=== PATIENT | female | born 1990 | race Caucasian/White ===

== ENCOUNTER 2022-05-08 14:25 | Emergency (ER) | payer BC, SELFPAY ==
[2022-05-08 15:00] VITALS: BP 125/61; PULSE 66; RESP 18; TEMP 36.8; O2SAT 98; BMI 29.9
--- NOTE | 2022-05-08 15:06 | XR_ITS ---
FINAL REPORT CLINICAL HISTORY: kicked dog crate FINDINGS: RIGHT FOOT: Three views of the right foot were obtained. There is a fracture of the proximal medial aspect of the 1st proximal phalanx with mild distraction. The fracture line extends into the 1st MTP joint. There is a small calcaneal spur. There is no soft tissue abnormality. IMPRESSION: First proximal phalanx fracture as above Reviewed, Interpreted and Dictated by Leandro Squires III, MD Transcribed by Janelle Christine Authenticated and [facility]
--- NOTE | 2022-05-08 15:36 | HMH.EDUTC ---
[facility] [place] Clinical Impression: Fracture of proximal phalanx of great toe Qualifiers: Encounter type: initial encounter Fracture type: closed Fracture alignment: nondisplaced Laterality: right Qualified Code(s): S92.414A - Nondisplaced fracture of proximal phalanx of right great toe, initial encounter for closed fracture Disposition: Home, Self-Care Condition on Discharge: Good Instructions: Toe Fracture, DI for Toe Fracture, How to Mack Tape Additional Instructions: *weight bearing as tolerated *RICE, Rest the extremity, Ice 15-20 minutes 3-4 times daily, Compress- wear the juan j wrap as discussed as much as possible to help reduce swelling and pain, Elevate the extremity when at rest *Juan J wrap/Post op shoe is for support and help control swelling, use it except in the shower. Be sure that is not to tight but not to loose either *Elevate when resting *Ibuprofen 600-800mg every 6-8 hours as needed for pain an inflammation. If need something more can take Tylenol in between doses of Ibuprofen to help Immediately follow up with your family doctor for new or worsening of symptoms, or no noticeable improvement over the next 3-[address] Follow up [address] Schilling [facility] or Podiatry if no improvement or any worsening of symptoms Follow up with your Family Doctor if needed Straight to ER if any life threatening symptoms Referrals: Elise Bocanegra MD [Primary Care Provider] - As needed Julio Schilling MD [Staff Physician] - Marlen Desouza DPM [Staff Physician] - Time of Disposition: 15:45 Medical Decision Making - John Inquiry Pt receiving controlled substance: No John was queried for this patient: No Vital Signs: 05/08/22 15:00 05/08/22 15:47 Temperature 98.3 F 98.3 F Temperature Source Oral Pulse Rate 66 Pulse Rate [Left Brachial] 66 Respiratory Rate 18 18 Blood Pressure 125/61 Blood Pressure [Left Arm] 125/61 Blood Pressure Mean [Left Arm] 82 Blood Pressure Source [Left Arm] Automatic Cuff Blood Pressure Position [Left Arm] Sitting 02 Sat by Pulse Oximetry 98 Oxygen Delivery Method Room Air - Radiology Data #1 Image(s): Foot/Toes (right) Image Reviewed: Yes I reviewed the patient's radiology image Fracture base of proximal phalanx big toe [facility] [place] HPI - General Stated complaint: AO 05/08 foot pain Time Seen by Provider: 05/08/22 15:36 Mode of Arrival: Ambulatory Source of Information: Patient Limitations: No Limitations Description of Symptoms (Recalled from Triage Doc. by RN): PATIENT C/O PAIN AND BRUISING TO RIGHT GREAT TOE AREA AFTER KICKING DOG CRATE THIS MORNING HEENT Symptoms (Recalled from RN notes): No Resp Symptoms (Recalled from RN notes): No Skin Symptoms (Recalled from RN notes): No MS Symptoms (Recalled from RN notes): Yes Functional Status (Recalled from RN notes): WNL - History of Present Illness Provider Complaint: Patient states that she was walking through her house this morning when she accidently kicked a dog crate States that she has been having swelling and bruising to her right great toe ever sice so she came in to get checked out - Related Data Allergies Allergy/AdvReac Type Severity Reaction Status Date / Time No Known Allergies Allergy Verified 05/08/22 15:19 - Worker's Comp Is this a Worker's Comp case?: No [facility] History - Hepatitis A Screen Attestation statement:: This patient has been screened for Hepatitis A risk factors. I have reviewed the patient's past medical history: Yes ROS Obtained: Yes All systems reviewed & no additional complaints, Yes Systems reviewed as appropriate & no additional complaints - Constitutional Constitutional: Reports system reviewed and no additional complaints, except as docu, Denies body ache, Denies chills - Cardiovascular Cardiovascular: Reports system reviewed and no additional complaints, except as docu - Respiratory Respiratory: Reports system reviewed and no additional complaints, except as do
[2022-05-08 15:47] VITALS: BP 125/61; PULSE 66; RESP 18; TEMP 36.8; O2SAT 98
== END 2022-05-08 16:00 | disposition home or self-care (01) ==
PROVIDERS: Emergency Provider Nurse Practitioner; PCP Family Medicine
DX: S92.414A Nondisplaced fracture of proximal phalanx of right great toe, initial encounter for closed fracture (principal); W22.8XXA Striking against or struck by other objects, initial encounter
CPT/HCPCS: 73630; 99213; G0463

== ENCOUNTER → 2023-02-15 13:39 | Outpatient (CLI) | payer BC, SELFPAY ==
--- NOTE | 2023-02-15 13:59 | US_ITS ---
FINAL REPORT TECHNIQUE: Sonographic images of the pelvis were obtained transvaginally. CLINICAL HISTORY: pelvic pain, and iud in place , check ovaries FINDINGS: The uterus is anteverted and anteflexed. It measures 7.8 x 4.5 x 3.7 cm. The endometrial stripe measures 3 mm. There is an IUD within the endometrial cavity. The myometrium is mildly heterogeneous which could represent small fibroids or adenomyosis. There is a small amount of fluid within the cervix which is otherwise unremarkable. The right ovary is not visualized and reportedly removed. The left ovary measures 4.2 x 3.9 x 3.7 cm. There is a hypoechoic 3.1 cm lesion within the left ovary with internal echoes which is most consistent with a hemorrhagic cyst, endometrioma less likely. Color imaging to the left ovary is within normal limits. There is no free fluid. IMPRESSION: 1. IUD within the endometrial cavity. 2. Mildly heterogeneous myometrium could represent small fibroids or adenomyosis. 3. Hypoechoic left ovarian lesion, favor hemorrhagic cyst, endometrioma less likely. Reviewed, Interpreted and Dictated by Eloisa Shepherd MD Transcribed by Janelle Christine Authenticated and . [facility]
== END ==
PROVIDERS: PCP Family Medicine; Visit Provider Obstetrics & Gynecology
DX: R10.2 Pelvic and perineal pain (principal); Z97.5 Presence of (intrauterine) contraceptive device
CPT/HCPCS: 76830

== ENCOUNTER 2024-06-04 22:12 | Emergency (ER) | payer BC, SELFPAY ==
[2024-06-04 22:13] VITALS: BP 149/91; PULSE 123; RESP 20; TEMP 37.2; O2SAT 100; BMI 32.4
--- NOTE | 2024-06-04 22:43 | ED_ITS ---
<Statement entered by Claire Marin MD - 06/04/24 22:57> I was consulted by the GAGE, and we discussed the complexity of the problems being addressed. I approved the treatment and management plan for this patient's care in the emergency department, thus performing a substantive portion of the medical decision making. Claire Marin MD, LUIS, FACEP Discharge Plan Disposition Patient Disposition: Home, Self-Care Condition: Good Prescriptions Prescriptions: New ondansetron HCl 4 mg tablet 4 mg PO Q8H PRN (Reason: nausea and vomiting) 4 Days Qty: 12 0RF No Action Mirena 21 mcg/24 hours (8 yrs) 52 mg intrauterine device intrauterine propranolol 10 mg tablet 10 mg PO ONCE PRN Referrals Follow up/Referrals: James Mandujano MD [Primary Care Provider] - See instructions Activity Restrictions/Add. Instructions Additional Instructions/Restrictions: You were evaluated in the emergency department today. Please follow-up closely with your primary care provider. Return to the emergency department for new or worsening symptoms. Clinical Impressions Clinical Impression: Tachycardia, Body aches Stand Alone Forms Stand Alone Forms: Work/School Release Instructions Patient Instructions: DI for Arthralgia, DI for Tachycardia Discharge ED Provider: Claire Marin HPI <YEVGENIY Brock - Last Filed: 06/04/24 22:50> General Chief Complaint: Upper Respiratory Infection Stated Complaint: body aches,headache Time Seen by Provider: 06/04/24 22:27 History of Present Illness HPI narrative: Patient presents for evaluation of rapid heart rate. Patient stated that she noticed that her heart rate was very fast her Apple Watch. She also reports constitutionally overall body wide aches but no focal symptoms including cough fever chills hemoptysis hematochezia melena nausea vomiting diarrhea. She took a home COVID test which was negative. She has no cough. Related Data Home Medications Medication Instructions Recorded Confirmed levonorgestrel 21 mcg/24 hr (up to intrauterine 01/02/23 01/02/23 8 years) 52 mg intrauterine device (Mirena) propranolol 10 mg tablet 10 mg PO ONCE PRN 01/02/23 01/02/23 Previous Rx's Medication Instructions Recorded ondansetron HCl 4 mg tablet 4 mg PO Q8H PRN nausea and 06/05/24 vomiting 4 days #12 tabs Allergies Allergy/AdvReac Type Severity Reaction Status Date / Time No Known Allergies Allergy Verified 01/02/23 15:07 PFSH <YEVGENIY Brock - Last Filed: 06/04/24 22:50> [facility] Disclaimer: The information contained in this section may have been updated after the patient was seen, as this information can be updated by other users. Medical History (Updated 06/05/24 @ 00:44 by Ellyn Bar DO) Endometriosis Surgical History (Updated 01/02/23 @ 15:28 by Magi Marin MD) History of salpingoophorectomy History of appendectomy Social History (Updated 01/02/23 @ 15:14 by Miriam Hyatt CMA) Smoking Status: Never smoker alcohol intake: current substance use type: denies use current occupational status: employed Travel in the last 8 weeks: None <YEVGENIY Brock - Last Filed: 06/04/24 22:50> ROS Obtained: Yes Systems reviewed as appropriate & no additional complaints except as documented Physical Exam <YEVGENIY Brock - Last Filed: 06/04/24 22:50> General General appearance: alert and in no apparent distress Head Head exam: atraumatic and normal inspection Eye Eye exam: Present normal appearance, PERRL and EOMI ENT ENT exam: Present normal exam, normal oropharynx and mucous membranes moist Neck Neck exam: Present normal inspection, full ROM and trachea midline; Absent lymphadenopathy Chest Chest inspection: Present normal inspection and symmetric chest wall rise Respiratory Respiratory exam: Present normal lung sounds bilaterally; Absent respiratory distress, wheezes or accessory muscle use Cardiovascular Cardiovascular exam: Present normal rhythm, tachycardia, normal heart sounds, +S1 and +S2 Neurological Exam Neurological exam: Present alert and oriented X3 HEART Score <YEVGENIY Brock Last Filed: 06/04/24 22:50> HEART Score HEART Score assessment performed?: No Critical Care <YEVGENIY Brock Last Filed: 06/04/24 22:50> Critical Care Time Critical Care Time: No Medical Decision Making <YEVGENIY Brock - Last Filed: 06/04/24 22:50> John Inquiry Pt receiving controlled substance: No Vital Signs Vital Signs: 06/04/24 22:13 06/05/24 00:27 Temperature 99 F Temperature Source Oral Pulse Rate 89 Pulse Rate [Right Brachial] 123 H Respiratory Rate 20 20 Blood Pressure 122/81 Blood Pressure [Right Arm] 149/91 H Blood Pressure Mean [Right Arm] 110 Blood Pressure Source Automatic Cuff Blood Pressure Source [Right Arm] Automatic Cuff Blood Pressure Position Sitting Blood Pressure Position [Right Arm] Sitting 02 Sat by Pulse Oximetry 100 96 Oxygen Delivery Method Room Air Room Air Lab Data Lab results reviewed: Yes I reviewed the patient's lab results. Labs: Lab Results 06/04/24 22:56: WBC 7.4, RBC 4.85, Hgb 14.1, Hct 41.3, MCV 85.3, MCH 29.1, MCHC 34.2, RDW 15.5, Plt Count 340, MPV 8.5, Neut % (Auto) 71.3, Lymph % (Auto) 22.2, [place] % (Auto) 4.4, Eos % (Auto) 1.4, Baso % (Auto) 0.7, Neut # (Auto) 5.3, Lymph # (Auto) 1.7, [place] # (Auto) 0.3, Eos # (Auto) 0.1, Baso # (Auto) 0.1, D-Dimer 0.35, Sodium 139, Potassium 3.9, Chloride 105, Carbon Dioxide 28, Anion Gap 9.9, BUN 10, Creatinine 1.00, Estimated Creat Clear 111, Estimated GFR 63, Est GFR ( Amer) 77, Glucose 124 H, Lactate 0.8, Calcium 9.7, Magnesium 2.1, Total Bilirubin 0.6, AST 32, ALT 32, Alkaline Phosphatase 72, Total Creatine Kinase 47, Total Protein 8.2, Albumin 4.7, Globulin 3.5 H, Albumin/Globulin Ratio 1.3, Procalcitonin < 0.030, TSH 2.63, Free T4 Index 2.0 L, Thyroxine (T4) 6.8, T3 Uptake 29, Serum HCG, Qual Negative 06/04/24 22:56 06/04/24 22:56 Response Orders (Tests/Meds): ED MEDICATIONS Discontinued Medications Generic Name Dose Route Start Last Admin Trade Name Freq PRN Reason Stop Dose Admin Acetaminophen 1,000 mg 06/04/24 22:44 06/04/24 23:00 Acetaminophen 1,000mg/100ml Vial IV 06/04/24 22:45 1,000 mg ONCE ONE Administration Lactated Ringer's 1,000 mls @ 999 mls/hr 06/04/24 22:44 06/04/24 23:00 Lactated Ringer's 1000 Ml Bag IV 06/04/24 23:44 999 mls/hr .Q1H1M ONE Administration Ketorolac Tromethamine 15 mg 06/04/24 22:44 06/04/24 23:01 Ketorolac 30mg/Ml Vial IV 06/04/24 22:45 15 mg ONCE ONE Administration Metoclopramide HCl 5 mg 06/05/24 00:04 06/05/24 00:14 Metoclopramide Hcl 10mg/2ml Vial IVP 06/05/24 00:05 5 mg ONCE ONE Administration ORDERS Category Date Time Status Chest XR -- portable [XR chest portable] Stat Exams 06/04/24 22:44 Completed CBC w/Auto Diff [Complete Blood Count Auto Diff] Stat Lab 06/04/24 22:56 Completed CK [Creatine Kinase] Stat Lab 06/04/24 22:56 Completed CMP [Comprehensive Metabolic Panel] Stat Lab 06/04/24 22:56 Completed D-Dimer Stat Lab 06/04/24 22:56 Completed HCG Qualitative, Serum Stat Lab 06/04/24 22:56 Completed Lactic Acid Stat Lab 06/04/24 22:56 Completed Magnesium Stat Lab 06/04/24 22:56 Completed Procalcitonin Stat Lab 06/04/24 22:56 Completed Rapid PCR Covid and Flu A/B Stat Lab 06/04/24 00:25 Received Thyroid Panel Stat Lab 06/04/24 22:56 Completed MDM Narrative Medical Decision Narrative: In summary patient is a 34-year-old female who presents to the emergency department for evaluation of rapid heart rate. Patient is normotensive with a blood pressure 149/91 but heart rate of 123 upon arrival, and a temperature of 99. Physical exam is remarkable for sinus tachycardia via palpation and auscultation but clear breath sounds and no other focal findings.. Differential diagnosis includes an infectious tachycardia versus arrhythmia versus electrolyte normality etc. Initial workup will be conducted with hematologic labs plain film chest x-ray twelve-lead EKG. Initial interventions include crystalloid bolus Toradol Tylenol. Initial workup started and pending at the time of handoff to Dr. Bar at 2300 hrs. <Ellyn Bar, DO - Last Filed: 06/05/24 00:49> Vital Signs Vital Signs: 06/04/24 22:13 06/05/24 00:27 Temperature 99 F Temperature Source Oral Pulse Rate 89 Pulse Rate [Right Brachial] 123 H Respiratory Rate 20 20 Blood Pressure 122/81 Blood Pressure [Right Arm] 149/91 H Blood Pressure Mean [Right Arm] 110 Blood Pressure Source Automatic Cuff Blood Pressure Source [Right Arm] Automatic Cuff Blood Pressure Position Sitting Blood Pressure Position [Right Arm] Sitting 02 Sat by Pulse Oximetry 100 96 Oxygen Delivery Method Room Air Room Air Lab Data Labs: Lab Results 06/04/24 22:56: WBC 7.4, RBC 4.85, Hgb 14.1, Hct 41.3, MCV 85.3, MCH 29.1, MCHC 34.2, RDW 15.5, Plt Count 340, MPV 8.5, Neut % (Auto) 71.3, Lymph % (Auto) 22.2, [place] % (Auto) 4.4, Eos % (Auto) 1.4, Baso % (Auto) 0.7, Neut # (Auto) 5.3, Lymph # (Auto) 1.7, [place] # (Auto) 0.3, Eos # (Auto) 0.1, Baso # (Auto) 0.1, D-Dimer 0.35, Sodium 139, Potassium 3.9, Chloride 105, Carbon Dioxide 28, Anion Gap 9.9, BUN 10, Creatinine 1.00, Estimated Creat Clear 111, Estimated GFR 63, Est GFR ( Amer) 77, Glucose 124 H, Lactate 0.8, Calcium 9.7, Magnesium 2.1, Total Bilirubin 0.6, AST 32, ALT 32, Alkaline Phosphatase 72, Total Creatine Kinase 47, Total Protein 8.2, Albumin 4.7, Globulin 3.5 H, Albumin/Globulin Ratio 1.3, Procalcitonin < 0.030, TSH 2.63, Free T4 Index 2.0 L, Thyroxine (T4) 6.8, T3 Uptake 29, Serum HCG, Qual Negative Response Orders (Tests/Meds): ED MEDICATIONS Discontinued Medications Generic Name Dose Route Start Last Admin Trade Name Freq PRN Reason Stop Dose Admin Acetaminophen 1,000 mg 06/04/24 22:44 06/04/24 23:00 Acetaminophen 1,000mg/100ml Vial IV 06/04/24 22:45 1,000 mg ONCE ONE Administration Lactated Ringer's 1,000 mls @ 999 mls/hr 06/04/24 22:44 06/04/24 23:00 Lactated Ringer's 1000 Ml Bag IV 06/04/24 23:44 999 mls/hr .Q1H1M ONE Administration Ketorolac Tromethamine 15 mg 06/04/24 22:44 06/04/24 23:01 Ketorolac 30mg/Ml Vial IV 06/04/24 22:45 15 mg ONCE ONE Administration Metoclopramide HCl 5 mg 06/05/24 00:04 06/05/24 00:14 Metoclopramide Hcl 10mg/2ml Vial IVP 06/05/24 00:05 5 mg ONCE ONE Administration ORDERS Category Date Time Status Chest XR -- portable [XR chest portable] Stat Exams 06/04/24 22:44 Completed CBC w/Auto Diff [Complete Blood Count Auto Diff] Stat Lab 06/04/24 22:56 Completed CK [Creatine Kinase] Stat Lab 06/04/24 22:56 Completed CMP [Comprehensive Metabolic Panel] Stat Lab 06/04/24 22:56 Completed D-Dimer Stat Lab 06/04/24 22:56 Completed HCG Qualitative, Serum Stat Lab 06/04/24 22:56 Completed Lactic Acid Stat Lab 06/04/24 22:56 Completed Magnesium Stat Lab 06/04/24 22:56 Completed Procalcitonin Stat Lab 06/04/24 22:56 Completed Rapid PCR Covid and Flu A/B Stat Lab 06/04/24 00:25 Received Thyroid Panel Stat Lab 06/04/24 22:56 Completed MDM Narrative Medical Decision Narrative: In summary patient is a 34-year-old female who presents to the emergency department for evaluation of rapid heart rate. Patient is normotensive with a blood pressure 149/91 but heart rate of 123 upon arrival, and a temperature of 99. Physical exam is remarkable for sinus tachycardia via palpation and auscultation but clear breath sounds and no other focal findings.. Differential diagnosis includes an infectious tachycardia versus arrhythmia versus electrolyte normality etc. Initial workup will be conducted with hematologic labs plain film chest x-ray twelve-lead EKG. Initial interventions include crystalloid bolus Toradol Tylenol. Initial workup started and pending at the time of handoff to Dr. Bar at 2300 hrs. Bar, DO: On my assessment of the patient, she is resting company with normal vital signs on cardiac telemetry. Tachycardia improved with IV fluid resuscitation. Labs do not demonstrate any acutely concerning abnormalities. CBC, CMP reassuring. Thyroid studies reassuring. D-dimer and CK negative. EKG obtained demonstrates normal sinus rhythm with a ventricular rate of 83 bpm. This was interpreted by myself at 0021. No acute ST changes concerning for ischemia. Normal axis and intervals. Patient said she had mild headache and nausea, so I did give her IV Reglan in addition to the medications administered above. Afterward, she states she is feeling better. She does note she has been under a lot of stress lately. Ultimately given reassuring workup and exam, I do feel she is appropriate for discharge home with very strict return precautions and instructions for close follow-up. I gave her prescription for Zofran to have as needed for nausea and vomiting, as this could be the start of an acute gastrointestinal/viral illness. It also could be stress-induced/dehydration, as she notes poor oral intake. Strict return precautions were given and the patient was discharged after all questions were answered.
--- NOTE | 2024-06-04 22:44 | XR_ITS ---
PROCEDURE INFORMATION: Exam: XR Chest Exam date and time: 06/04/2024 11:31 PM Age: 34 years old Clinical indication: Other: Tachycardia TECHNIQUE: Imaging protocol: Radiologic exam of the chest. Views: 1 view. COMPARISON: No relevant prior studies available. FINDINGS: Lungs: No consolidation. Pleural spaces: No pleural effusion. No pneumothorax. Heart/Mediastinum: No cardiomegaly. Bones/joints: Unremarkable. IMPRESSION: No acute pulmonary findings.
[2024-06-04] MEDS: ACETAMINOPHEN 1,000MG/100ML VIAL 1000 MG IV (23:00)
[2024-06-04] MEDS: LACTATED RINGERS 1000ML 1,000 ML 999 ML IV (23:00)
[2024-06-04] MEDS: KETOROLAC 30MG/ML VIAL 15 MG IV (23:01)
[2024-06-04 23:08] LABS: Basophils # 0.1 K/mm3 (0-0.2); Basophils % 0.7 % (0.1-2.0); Eosinophils # 0.1 K/mm3 (0.0-0.4); Eosinophils % 1.4 % (0.1-12.0); Hematocrit 41.3 % (37.0-47.0); Hemoglobin 14.1 g/dL (12.2-16.2); Lymphocytes # 1.7 K/mm3 (0.7-4.5); Lymphocytes % 22.2 % (10-50); Mean Corpuscular HGB Conc 34.2 g/dL (31.8-35.4); Mean Corpuscular Hemoglobin 29.1 pg (27.0-31.2); Mean Corpuscular Volume 85.3 fl (81-99); Mean Platelet Volume 8.5 fl (7.4-10.4); Monocytes # 0.3 K/mm3 (0.1-1.0); Monocytes % 4.4 % (1.7-9.3); Neutrophils # 5.3 K/mm3 (1.8-7.8); Neutrophils % 71.3 % (37.0-80.0); Platelet Count 340 K/mm3 (142-424); Red Blood Count 4.85 M/mm3 (4.20-5.40); Red Cell Distribution Width 15.5 % (11.5-17.5); White Blood Count 7.4 K/mm3 (4.8-10.8)
[2024-06-04 23:10] LABS: Chloride 105 mmol/L (98-107); Potassium 3.9 mmoL/L (3.5-5.1); Sodium 139 mmol/L (136-145)
[2024-06-04 23:13] LABS: Alanine Aminotransferase 32 U/L (12-78); Albumin Level 4.7 g/dl (3.5-5.0); Albumin/Globulin Ratio 1.3 (1.1-1.8); Alkaline Phosphatase 72 U/L (38-126); Anion Gap 9.9 mEq/L (5-15); Aspartate Amino Transferase 32 U/L (14-36); Bilirubin,Total 0.6 mg/dl (0.2-1.3); Blood Urea Nitrogen 10 mg/dl (7-17); Calcium 9.7 mg/dl (8.4-10.2); Carbon Dioxide 28 mmol/L (22.0-30.0); Creatinine Clearance Estimated 111 mL/min (50-200); Estimated Glomerular Filt Rate 63 ml/min (>60); GFR (African American) 77 ML/MIN (>60); Globulin 3.5 g/dL (1.3-3.2); Glucose 124 mg/dl (74-100); Lactic Acid 0.8 mmol/L (0.7-2.1); Total Protein,Serum 8.2 g/dl (6.3-8.2)
[2024-06-04 23:23] LABS: Creatine Kinase 47 U/L (30-135); Magnesium 2.1 mg/dl (1.6-2.3)
[2024-06-04 23:28] LABS: D-Dimer 0.35 ug/mL (0.0-0.5)
[2024-06-04 23:34] LABS: HCG Qualitative, Serum Negative (Negative)
[2024-06-04 23:42] LABS: T4 (Thyroxine) 6.8 ug/dl (5.53-11.0); Triiodothryronine (T3) Uptake 29 % (23.5-40.5)
[2024-06-04 23:47] LABS: Procalcitonin < 0.030 ng/mL (0.0-2.0)
[2024-06-04 23:56] LABS: Thyroid Stimulating Hormone 2.63 uIU/mL (0.465-4.68)
[2024-06-05] MEDS: METOCLOPRAMIDE HCL 10MG/2ML VIAL 5 MG IVP (00:14)
--- NOTE | 2024-06-05 00:17 | ECG_ITS ---
APPROVED REPORT Exam: Resting ECG HR:83 bpm ECG Measurements Heart Rate 83 AXES CA 130 P 34 QRSd 93 QRS 65 QT 354 T 3 QTc 393 Conclusion SINUS RHYTHM LOW QRS VOLTAGE IN PRECORDIAL LEADS [QRS DEFLECTION < 1.0 mV IN CHEST LEADS] BORDERLINE ECG Electronically signed by : SOLE DEVINE, 06/05/2024 04:33:50
[2024-06-05 00:27] VITALS: BP 122/81; PULSE 89; RESP 20; O2SAT 96
[2024-06-05 00:29] LABS: Coronavirus 19, PCR Not Detected (NotDetected); Influenza A, PCR Not Detected (NotDetected); Influenza B, PCR Not Detected (NotDetected)
[2024-06-05 00:50] VITALS: BP 110/60; PULSE 75; RESP 16; TEMP 36.6; O2SAT 98
[2024-06-05 00:53] VITALS: BP 118/72; PULSE 88; RESP 15; TEMP 36.6; O2SAT 97
== END 2024-06-05 00:54 | disposition home or self-care (01) ==
PROVIDERS: Emergency Medicine; Physician Assistant; Emergency Provider Student in an Organized Health Care Education/Training Program; PCP Internal Medicine Adolescent Medicine
DX: R00.0 Tachycardia, unspecified (principal); R51.9 Headache, unspecified; R11.0 Nausea; M79.18 Myalgia, other site
CPT/HCPCS: 71045; 80050; 80053; 82550; 83605; 83735; 84145; 84436; 84443; 84479; 84703; 85025; 85378; 87636; 93005; 96361; 96374; 96375; 99284; J0131; J1885; J2765; J7120